=== PATIENT | female | born 1945 | race Caucasian/White ===

== ENCOUNTER 2018-01-17 10:16 | Inpatient (IN) | payer SELFPAY ==
--- NOTE | 2018-01-17 11:31 | Emergency Department Report ---
ED General Adult HPI - General Chief complaint: Hypoglycemia Stated complaint: ALTERED MENTAL STATUS Time Seen by Provider: 01/17/18 11:15 Source: family, EMS Mode of arrival: Stretcher Limitations: No Limitations, Other - History of Present Illness Initial comments: Patient is a 72-year-old female that presents emergency room with complaints of altered mental status unresponsiveness and hypoglycemia. Patient was brought in by EMS and given D50 in route and her sugar now is 2:15. Patient is a diabetic and is only taking metformin. Patient denies chest pain shortness of breath. Patient denies fever and chills patient denies any pain or other physical symptoms. Patient recently seen in urgent care for a toe infection and given Lasix and an antibiotic. MD Complaint: ams, unresponsive. -: Sudden Severity scale (0 -10): 10 Consistency: now resolved Improves with: medication Worsens with: none Associated Symptoms: confusion, malaise, weakness. denies: chest pain, cough, diaphoresis, fever/chills, headaches, loss of appetite, nausea/vomiting, rash, seizure, shortness of breath, syncope Treatments Prior to Arrival: other (amp of D50) - Related Data Home Medications Medication Instructions Recorded Confirmed Last Taken Cephalexin [Keflex] 500 mg PO Q12HR 01/17/18 01/17/18 Unknown Furosemide [Lasix] 20 mg PO DAILY 01/17/18 01/17/18 Unknown metFORMIN [Glucophage] 500 mg PO BID 01/17/18 01/17/18 Unknown Allergies Allergy/AdvReac Type Severity Reaction Status Date / Time No Known Allergies Allergy Unverified 01/17/18 10:56 ED Review of Systems ROS: Stated complaint: ALTERED MENTAL STATUS Other details as noted in HPI Constitutional: denies: chills, fever Eyes: denies: eye pain, eye discharge, vision change ENT: denies: ear pain, throat pain Respiratory: denies: cough, shortness of breath, wheezing Cardiovascular: denies: chest pain, palpitations Endocrine: no symptoms reported Gastrointestinal: denies: abdominal pain, nausea, diarrhea Genitourinary: denies: urgency, dysuria, discharge Musculoskeletal: denies: back pain, joint swelling, arthralgia Skin: denies: rash, lesions Neurological: weakness. denies: headache, paresthesias Psychiatric: denies: anxiety, depression Hematological/Lymphatic: denies: easy bleeding, easy bruising ED Past Medical Hx - Past Medical History Previous Medical History?: Yes Hx Hypertension: Yes Hx Diabetes: Yes - Surgical History Past Surgical History?: No - Family History Family history: hypertension - Social History Smoking Status: Never Smoker Substance Use Type: None - Medications Home Medications: Home Medications Medication Instructions Recorded Confirmed Last Taken Type Cephalexin [Keflex] 500 mg PO Q12HR 01/17/18 01/17/18 Unknown History Furosemide [Lasix] 20 mg PO DAILY 01/17/18 01/17/18 Unknown History metFORMIN [Glucophage] 500 mg PO BID 01/17/18 01/17/18 Unknown History ED Physical Exam - General Limitations: No Limitations General appearance: alert, in no apparent distress - Head Head exam: Present: atraumatic, normocephalic - Eye Eye exam: Present: normal appearance - ENT ENT exam: Present: mucous membranes moist - Neck Neck exam: Present: normal inspection - Respiratory Respiratory exam: Present: normal lung sounds bilaterally. Absent: respiratory distress - Cardiovascular Cardiovascular Exam: Present: regular rate, normal rhythm. Absent: systolic murmur, diastolic murmur, rubs, gallop - GI/Abdominal GI/Abdominal exam: Present: soft, normal bowel sounds - Extremities Exam Extremities exam: Present: normal inspection, full ROM - Back Exam Back exam: Present: normal inspection - Neurological Exam Neurological exam: Present: alert, oriented X3, other (foot exam normal. no signs of infection. ) - Psychiatric Psychiatric exam: Present: normal affect, normal mood - Skin Skin exam: Present: warm, dry, intact, normal color. Absent: rash ED Course Vital Signs 01/17/18 01/17/18 10:56 12:37 Temperature 97.7 F Pulse Rate 67 69 Respiratory 17 18 Rate Blood Pressure 124/57 Blood Pressure 128/58 [Left] O2 Sat by Pulse 96 100 Oximetry - Reevaluation(s) Reevaluation #1: Patient to be admitted to the hospitalist service. 01/17/18 14:42 Reevaluation #2: Patient to be admitted to Dr. Esparza in the hospital service 01/17/18 15:[address]. [address] Esparza to assume care and admit patient to the hospitalist service. ED Medical Decision Making - Lab Data Result diagrams: 01/17/18 11:12 01/17/18 14:44 - EKG Data -: EKG Interpreted by Me EKG shows normal: sinus rhythm, intervals, QRS complexes Rate: normal - Medical Decision Making Patient is a 72-year-old female presents emergency room for unresponsiveness and hypoglycemia brought in by EMS. Patient found to have a large UTI and will admit patient to the hospitalist service for further evaluation and treatment - Differential Diagnosis uti. hypoglycemia, ams, med toxity. dehydration. Critical Care Time: Yes Critical care attestation.: If time is entered above; I have spent that time in minutes in the direct care of this critically ill patient, excluding procedure time. Critical Care Time: 35 minutes spent for cc time. ED Disposition Clinical Impression: Hypoglycemia, Mental status alteration, UTI (urinary tract infection), Unresponsiveness Disposition: 09 OP ADMIT IP TO THIS HOSP Is pt being admited?: Yes Does the pt Need Aspirin: No Condition: Serious Time of Disposition: 14:33
[2018-01-17 11:33] LABS: Basophils % (Auto) 0.6 % (0.0-1.8); Eosinophils # (Auto) 0.3 K/mm3 (0.0-0.4); Eosinophils % (Auto) 3.9 % (0.0-4.3); Hematocrit 35.4 % (30.3-42.9); Hemoglobin 12.5 gm/dl (10.1-14.3); Lymphocytes # (Auto) 2.6 K/mm3 (1.2-5.4); Lymphocytes % (Auto) 32.9 % (13.4-35.0); Mean Corpuscular HGB Conc 35 % (30-34); Mean Corpuscular Hemoglobin 32 pg (28-32); Mean Corpuscular Volume 92 fl (79-97); Monocytes # (Auto) 0.4 K/mm3 (0.0-0.8); Monocytes % (Auto) 4.6 % (0.0-7.3); Platelet Count 212 K/mm3 (140-440); Red Blood Count 3.84 M/mm3 (3.65-5.03); Red Cell Distribution Width 12.5 % (13.2-15.2)
[2018-01-17 11:45] LABS: BUN/Creatinine Ratio 52; Blood Urea Nitrogen 47 mg/dL (7-17); Calcium 10.2 mg/dL (8.4-10.2); Hemolysis Index 5
--- NOTE | 2018-01-17 12:15 | Cat Scan Report ---
CT HEAD WITHOUT CONTRAST: HISTORY: Lightheadedness, dizziness. TECHNIQUE: Sequential 2.5mm CT images. COMPARISON: none. FINDINGS: Cerebral Parenchyma: Within normal limits. Cerebellum: Within normal limits. Brainstem: Within normal limits. Ventricles: Normal. Sella: Normal. Extra-axial spaces: Normal. Basal Cisterns: Normal. Intracranial Hemorrhage: None. Midline Shift: None. Calvarium: Normal. Sinuses: Normal. Mastoid Air Cells: Normal. Visualized Orbits: Normal. IMPRESSION: Cranial CT scan within normal limits.
[2018-01-17 13:16] LABS: Bacteria,Urine 2+ /HPF (Negative); Bilirubin,Urine NEG (Negative); Blood,Urine SM (Negative); Color,Urine Yellow (Yellow); Mucus,Urine FEW /HPF; Protein,Urine <15 mg/dL mg/dL (Negative); Urobilinogen,Urine < 2.0 mg/dL (<2.0)
[2018-01-17] MEDS ORDERED: NACL 0.9% 1000 ML 1,000 ML IV ONE (14:37)
--- NOTE | 2018-01-17 15:50 | Cat Scan Report ---
FINAL REPORT EXAM: CT ABDOMEN PELVIS WO CON HISTORY: abd pain TECHNIQUE: CT of the abdomen and pelvis without IV contrast. Sagittal reconstructed imaging provided. PRIORS: None currently available. FINDINGS: ABDOMEN: Mild scarring or discoid subsegmental atelectasis in both lung bases. Limited images of the heart demonstrate small pericardial effusion which may be physiologic. Mild cardiomegaly noted. Coronary artery disease identified. Distended gallbladder with layering density suggesting sludge and tiny stones. Mild wall thickening suspected. Common bile duct appears distended measuring 10 mm. Distinct ductal stone or lesion is not evident by CT. Liver, stomach, spleen, pancreas, adrenals, and kidneys are unremarkable. No hydronephrosis or nephroureteral stones. There is no abdominal aortic aneurysm. [id number] atherosclerotic disease noted. IVC is unremarkable. There is no periaortic or retroperitoneal adenopathy or mass. Appendix is normal. Terminal ileum is unremarkable. [id number] stool throughout the colon without wall thickening or inflammatory changes. Small bowel loops are mildly distended. There may be some mild wall thickening. No obstructive pattern. No air-fluid levels. Mesentery is unremarkable. Fat-containing umbilical hernia without strangulation. PELVIS: Bladder is significantly distended with lobulated margins no wall thickening or lesion identified. Findings could be related to dysuria. Limited images of the uterus are unremarkable. There is no pelvic mass or adenopathy. Inguinal regions are unremarkable. Bones: No suspicious osseous lesions on this limited examination of the skeleton. Metastatic disease better evaluated with bone scan. Degenerative changes are in the spine. IMPRESSION: Possible acute cholecystitis. Please correlate with gallbladder ultrasound. Small pericardial effusion. Possibly physiologic. Small bowel findings may represent mild enteritis, ileus, or normal variation. No obstruction. Large bladder with lobulation. Possible dysuria.
[2018-01-17] MEDS: ZOSYN/NS 3.375GM/50ML 3.375 GM/50 ML BAG IV SCH ×2 (15:51→23:57)
[2018-01-17] MEDS ORDERED: SODIUM CHLORIDE FLUSH SYRINGE 10 ML IV PRN (20:16)
[2018-01-17] MEDS ORDERED: TYLENOL PO PRN (20:16)
[2018-01-17] MEDS ORDERED: ZOFRAN IV PRN (20:16)
[2018-01-17] MEDS ORDERED: PERCOCET 5/325 PO PRN (20:18)
[2018-01-17] MEDS ORDERED: MORPHINE IV PRN (20:18)
[2018-01-17] MEDS ORDERED: D5NS 1,000 ML IV SCH (21:00)
[2018-01-17] MEDS ORDERED: PEPCID IV SCH ×2 (22:00)
--- NOTE | 2018-01-17 22:33 | Event Note ---
Date: 01/17/18 See dictated history and physical in the reports
[2018-01-17] MEDS ORDERED: NACL 0.9% 1000 ML 1,000 ML IV SCH (23:00)
--- NOTE | 2018-01-17 23:16 | History and Physical Report ---
CHIEF COMPLAINT: Altered mental status for a few hours. HISTORY OF PRESENT ILLNESS: A 72-year-old female with history of diabetes, on metformin 500 twice a day, brought in for unresponsiveness and low blood sugars. The patient was given D50 en route and the sugar in the Emergency Room was 215. Before, it was around 40. The patient denies any chest pain, palpitations or shortness of breath. Denies fever and chills. The patient was seen for a toe infection recently and was given cephalexin. PAST MEDICAL HISTORY: Significant for type 2 diabetes. PAST SURGICAL HISTORY: None. FAMILY HISTORY: Hypertension. SOCIAL HISTORY: Does not smoke. No alcohol, no recreational drugs. REVIEW OF SYSTEMS: Significant for altered sensorium and decreased responsiveness, which is improved to normal sensorium while in the Emergency Room. No fever. No chills. A 14-point review of systems done, otherwise negative. PHYSICAL EXAMINATION: GENERAL: Elderly female, cooperative during examination. Alert and oriented during my examination. VITAL SIGNS: Blood pressure is 128/58, temperature is 97.4, pulse is 69, respirations are 18, sats 100%. HEENT: Unremarkable. Pupils equal and reactive. NECK: Supple, no lymphadenopathy, no thyromegaly. LUNGS: Clear to auscultation and percussion. Good air entry. CARDIOVASCULAR: S1, S2 heard. No gallop, no murmur, no rub. Apical impulse in left fifth intercostal space and midclavicular line. ABDOMEN: Soft and benign. No hepatosplenomegaly. No guarding, no rigidity. Hernial orifices are normal. EXTREMITIES: Good pedal pulses. No pedal edema. CENTRAL NERVOUS SYSTEM: Alert and oriented x 4 during the exam. At the time of admission to the Emergency Room, the patient was lethargic. Became more responsive after D50W LABORATORY DATA: Significant for white count of 8000, H and H is 12.5 and 35.4, platelet count of 212,000. Sodium is 140, potassium 4.4, BUN and creatinine is 47 and 0.9. A1c is 8.3, glucose is 215, white blood cells in the urine is 108, epithelial cells 40. ASSESSMENT AND PLAN: 1. Acute encephalopathy secondary to hypoglycemia, corrected with IV fluids for now and D50W as necessary. Metformin stopped. 2. Diabetes, uncontrolled because of an A1c of 8.3. We will monitor blood sugars. We will reintroduce metformin later. Hypoglycemia, probably secondary to not eating and urinary tract infection. 3. Urinary tract infection. The patient was started on IV Rocephin 2 g IV piggyback q. 24 hours. 4. Acute kidney injury. The patient has prerenal dehydration. The patient to get IV fluids. 5. Deep venous thrombosis prophylaxis, heparin 5000 q.12h subcutaneous. JOB# [id number] VSM/NTS
[2018-01-18] MEDS: SODIUM CHLORIDE FLUSH SYRINGE 10 ML IV SCH ×3 (00:04→22:32)
[2018-01-18] MEDS: HumaLOG SUB-Q SCH ×5 (00:14→22:31)
[2018-01-18 05:41] LABS: Basophils # (Auto) 0.1 K/mm3 (0.0-0.1); Basophils % (Auto) 0.9 % (0.0-1.8); Eosinophils # (Auto) 0.4 K/mm3 (0.0-0.4); Eosinophils % (Auto) 4.9 % (0.0-4.3); Hematocrit 33.4 % (30.3-42.9); Hemoglobin 11.5 gm/dl (10.1-14.3); Lymphocytes # (Auto) 3.3 K/mm3 (1.2-5.4); Lymphocytes % (Auto) 44.3 % (13.4-35.0); Mean Corpuscular HGB Conc 35 % (30-34); Mean Corpuscular Hemoglobin 32 pg (28-32); Mean Corpuscular Volume 93 fl (79-97); Monocytes # (Auto) 0.4 K/mm3 (0.0-0.8); Monocytes % (Auto) 4.8 % (0.0-7.3); Platelet Count 208 K/mm3 (140-440); Red Blood Count 3.59 M/mm3 (3.65-5.03); Red Cell Distribution Width 12.8 % (13.2-15.2)
[2018-01-18 06:06] LABS: Alanine Aminotransferase 6 units/L (7-56); Albumin 3.4 g/dL (3.9-5); BUN/Creatinine Ratio 32; Blood Urea Nitrogen 29 mg/dL (7-17); Calcium 9.2 mg/dL (8.4-10.2); Hemolysis Index 36
[2018-01-18] MEDS: PEPCID PO SCH ×2 (09:12→22:31)
[2018-01-18] MEDS ORDERED: ROCEPHIN/NS 2 GM/100 ML 2 GM/100 ML BAG IV SCH (10:00)
[2018-01-18] MEDS ORDERED: cefTRIAXone 2 GM in NACL 0.9% 20 ML IV SCH (10:00)
--- NOTE | 2018-01-18 10:13 | Progress Note ---
Assessment and Plan - Patient Problems (1) Acute prerenal azotemia Current Visit: Yes Status: Acute Plan to address problem: Secondary to dehydration This is improving Continue IV hydration Monitor renal function (2) Type 2 diabetes mellitus Current Visit: Yes Status: Chronic Qualifiers: Diabetes mellitus watermelon inspector insulin use: without watermelon inspector use Diabetes mellitus complication status: with ophthalmic complications Diabetes mellitus complication detail: with diabetic retinopathy Proliferative retinopathy type : unspecified Laterality: bilateral Plan to address problem: Monitor blood sugars before meals and at bedtime Initiate insulin sliding scale coverage (3) Abnormal CT of the abdomen Current Visit: Yes Status: Acute Plan to address problem: CT scan results reviewed Questionable acute cholecystitis We will request GI consult (4) Hypoglycemia Current Visit: Yes Status: Acute Plan to address problem: Resolved (5) Mental status alteration Current Visit: Yes Status: Acute Qualifiers: Altered mental status type: somnolence Qualified Code(s): R40.0 - Somnolence Plan to address problem: Most likely secondary to hypoglycemia This is resolved CT head results reviewed (6) UTI (urinary tract infection) Current Visit: Yes Status: Acute Qualifiers: Urinary tract infection type: acute cystitis Hematuria presence: without hematuria Qualified Code(s): N30.00 - Acute cystitis without hematuria Plan to address problem: Urine cultures pending Continue Rocephin but will decrease the dose to 1 g Subjective Date of service: 01/18/18 Principal diagnosis: altered mental status , hypoglycemia Interval history: 72-year-old [id number] female from [facility], was brought into the emergency room with altered mental status secondary to hypoglycemia. At the time of my examination patient is fully alert and oriented. History obtained from patient's son who is in the room. She is legally blind. Patient offers no specific complaints at this time. She denies any chest pain or shortness of breath. Denies any abdominal pain nausea or vomitings diarrhea or constipation. She denies any fever or chills or dysuria. Her appetite is fair. Labs and CT head and CT of the abdomen results reviewed Objective - Constitutional Vitals: Vital Signs - 12hr 01/18/18 01/18/18 02:36 08:59 Temperature 98.3 F 97.3 F L Pulse Rate 67 64 Respiratory 18 20 Rate Blood Pressure 130/61 124/69 O2 Sat by Pulse 99 97 Oximetry General appearance: Present: no acute distress - EENT Eyes: PERRL, EOM intact ENT: hearing intact, clear oral mucosa - Neck Neck: supple, normal ROM, no masses or JVD - Respiratory Respiratory effort: normal Respiratory: bilateral: CTA - Cardiovascular Rhythm: regular Heart Sounds: Present: S1 & S2 Extremities: No edema - Gastrointestinal General gastrointestinal: Present: soft, non-tender. Absent: hepatomegaly, splenomegaly Rectal Exam: deferred - Genitourinary Female genitourinary: deferred - Integumentary Integumentary: clear - Musculoskeletal Musculoskeletal: strength equal bilaterally - Neurologic Neurologic: no focal deficits, moves all extremities - Psychiatric Psychiatric: appropriate mood/affect - Labs CBC & Chem 7: 01/18/18 05:11 01/18/18 05:11 Labs: Abnormal lab results 01/17/18 01/17/18 01/17/18 Range/Units 10:51 11:12 11:12 RBC (3.65-5.03) M/mm3 MCHC 35 H (30-34) % RDW 12.5 L (13.2-15.2) % Lymph % (Auto) (13.4-35.0) % Eos % (Auto) (0.0-4.3) % BUN 47 H (7-17) mg/dL Glucose 182 H (65-100) mg/dL POC Glucose 215 H (70-105) Hemoglobin A1c (4-6) % ALT (7-56) units/L Total Protein (6.3-8.2) g/dL Albumin (3.9-5) g/dL Urine WBC (Auto) (0.0-6.0) /HPF U Epithel Cells (Auto) (0-13.0) /HPF 01/17/18 01/17/18 01/17/18 Range/Units 11:12 13:36 14:44 RBC (3.65-5.03) M/mm3 MCHC (30-34) % RDW (13.2-15.2) % Lymph % (Auto) (13.4-35.0) % Eos % (Auto) (0.0-4.3) % BUN (7-17) mg/dL Glucose 164 H (65-100) mg/dL POC Glucose 131 H (70-105) Hemoglobin A1c 8.3 H (4-6) % ALT (7-56) units/L Total Protein (6.3-8.2) g/dL Albumin (3.9-5) g/dL Urine WBC (Auto) (0.0-6.0) /HPF U Epithel Cells (Auto) (0-13.0) /HPF 01/17/18 01/17/18 01/17/18 Range/Units 16:32 21:44 Unknown RBC (3.65-5.03) M/mm3 MCHC (30-34) % RDW (13.2-15.2) % Lymph % (Auto) (13.4-35.0) % Eos % (Auto) (0.0-4.3) % BUN (7-17) mg/dL Glucose (65-100) mg/dL POC Glucose 150 H 182 H (70-105) Hemoglobin A1c (4-6) % ALT (7-56) units/L Total Protein (6.3-8.2) g/dL Albumin (3.9-5) g/dL Urine WBC (Auto) 108.0 H (0.0-6.0) /HPF U Epithel Cells (Auto) 40.0 H (0-13.0) /HPF 01/18/18 01/18/18 01/18/18 Range/Units 05:11 05:11 07:19 RBC 3.59 L (3.65-5.03) M/mm3 MCHC 35 H (30-34) % RDW 12.8 L (13.2-15.2) % Lymph % (Auto) 44.3 H (13.4-35.0) % Eos % (Auto) 4.9 H (0.0-4.3) % BUN 29 H (7-17) mg/dL Glucose 176 H (65-100) mg/dL POC Glucose 206 H (70-105) Hemoglobin A1c (4-6) % ALT 6 L (7-56) units/L Total Protein 5.6 L (6.3-8.2) g/dL Albumin 3.4 L (3.9-5) g/dL Urine WBC (Auto) (0.0-6.0) /HPF U Epithel Cells (Auto) (0-13.0) /HPF
[2018-01-18] MEDS ORDERED: cefTRIAXone 1 GM in NACL 0.9% 20 ML IV SCH (11:00)
--- NOTE | 2018-01-18 15:11 | Gastroenterology Consultation ---
<HUMAIRA POWERS - Last Filed: 01/18/18 15:11> History of Present Illness - Reason for Consult Consult date: 01/18/18 suspected cholecystitis Requesting physician: DREW BENSON - History of Present Illness Ms. Gill is a 72 y/o female visiting from [place] admitted with AMS 2/ 2 hypoglycemia, sepsis and UTI. CT on admission revealed questionable cholecystitis with distended gallbladder and wall thickening/sludge. CBD was dilated at 10mm. The patient has no GI complaints, no RUQ pain or N/V. She is tolerating her diet well. Family at bedside translates. WBC WNL. The patient is currently feeling well. Past History Past Medical History: diabetes, hypertension Past Surgical History: No surgical history Social history: lives with family Family history: hypertension Medications and Allergies Allergies Allergy/AdvReac Type Severity Reaction Status Date / Time No Known Allergies Allergy Unverified 01/17/18 10:56 Home Medications Medication Instructions Recorded Confirmed Last Taken Type Cephalexin [Keflex] 500 mg PO Q12HR 01/17/18 01/17/18 Unknown History Furosemide [Lasix] 20 mg PO DAILY 01/17/18 01/17/18 Unknown History metFORMIN [Glucophage] 500 mg PO BID 01/17/18 01/17/18 Unknown History Active Meds: Active Medications Acetaminophen (Tylenol) 650 mg PO Q4H PRN PRN Reason: Pain MILD(1-3)/Fever >100.5/PATHAK Famotidine (Pepcid) 20 mg PO BID [facility] Last Admin: 01/18/18 09:12 Dose: 20 mg Sodium Chloride (Nacl 0.9% 1000 Ml) 1,000 mls @ 75 mls/hr IV DIRECT [facility] Ceftriaxone Sodium 1 gm/ (Sodium Chloride) 20 mls @ 2 mls/min IV Q24HR [facility] Influenza Virus Vaccine Quadrival (Fluarix Quad [id number](36 Mos+) 0.5 ml IM .ONCE ONE Stop: 01/19/18 12:01 Insulin Human Lispro (Humalog) 0 unit SUB-Q ACHS [facility]; Protocol Last Admin: 01/18/18 11:45 Dose: 1 unit Morphine Sulfate (Morphine) 2 mg IV Q4H PRN PRN Reason: Pain, Moderate (4-6) Ondansetron HCl (Zofran) 4 mg IV Q8H PRN PRN Reason: Nausea And Vomiting Oxycodone/Acetaminophen (Percocet 5/325) 1 tab PO Q6H PRN PRN Reason: Pain, Moderate (4-6) Pneumococcal Polyvalent Vaccine (Pneumovax 23) 0.5 ml IM .ONCE ONE Stop: 01/19/18 12:01 Sodium Chloride (Sodium Chloride Flush Syringe 10 Ml) 10 ml IV BID [facility] Last Admin: 01/18/18 09:12 Dose: 10 ml Sodium Chloride (Sodium Chloride Flush Syringe 10 Ml) 10 ml IV PRN PRN PRN Reason: LINE FLUSH Review of Systems - Review of Systems All systems: negative Constitutional: weakness Exam - Constitutional Vital Signs: Temp Pulse Resp BP Pulse Ox 98.5 F 64 20 136/66 97 01/18/18 14:08 01/18/18 08:59 01/18/18 14:08 01/18/18 14:08 01/18/18 08:59 General appearance: no acute distress - EENT Eyes: EOM intact ENT: hearing intact - Neck Neck: supple - Respiratory Respiratory: bilateral: CTA - Cardiovascular Rhythm: regular Heart Sounds: Present: S1 & S2 - Gastrointestinal General gastrointestinal: Present: soft, non-tender, non-distended - Integumentary Integumentary: Present: warm, dry - Neurologic Neurological: alert and oriented x3 - Psychiatric Psychiatric: appropriate mood/affect - Labs CBC & Chem 7: 01/18/18 05:11 01/18/18 05:11 Lab Results: Laboratory Results - last 24 hr 01/17/18 01/17/18 01/17/18 11:12 14:44 16:32 WBC RBC Hgb Hct MCV MCH MCHC RDW Plt Count Lymph % (Auto) Josephine % (Auto) Eos % (Auto) Baso % (Auto) Lymph # Josephine # Eos # Baso # Seg Neutrophils % Seg Neutrophils # Sodium Potassium Chloride Carbon Dioxide Anion Gap BUN Creatinine Estimated GFR BUN/Creatinine Ratio Glucose 164 H POC Glucose 150 H Hemoglobin A1c 8.3 H Calcium Total Bilirubin AST ALT Alkaline Phosphatase Total Protein Albumin Albumin/Globulin Ratio 01/17/18 01/18/18 01/18/18 21:44 05:11 05:11 WBC 7.5 RBC 3.59 L Hgb 11.5 Hct 33.4 MCV 93 MCH 32 MCHC 35 H RDW 12.8 L Plt Count 208 Lymph % (Auto) 44.3 H Josephine % (Auto) 4.8 Eos % (Auto) 4.9 H Baso % (Auto) 0.9 Lymph # 3.3 Josephine # 0.4 Eos # 0.4 Baso # 0.1 Seg Neutrophils % 45.1 Seg Neutrophils # 3.4 Sodium 141 Potassium 4.2 Chloride 104.3 Carbon Dioxide 24 Anion Gap 17 BUN 29 H Creatinine 0.9 Estimated GFR > 60 BUN/Creatinine Ratio 32 Glucose 176 H POC Glucose 182 H Hemoglobin A1c Calcium 9.2 Total Bilirubin 0.20 AST 13 ALT 6 L Alkaline Phosphatase 35 Total Protein 5.6 L Albumin 3.4 L Albumin/Globulin Ratio 1.5 01/18/18 01/18/18 07:19 11:13 WBC RBC Hgb Hct MCV MCH MCHC RDW Plt Count Lymph % (Auto) Josephine % (Auto) Eos % (Auto) Baso % (Auto) Lymph # Josephine # Eos # Baso # Seg Neutrophils % Seg Neutrophils # Sodium Potassium Chloride Carbon Dioxide Anion Gap BUN Creatinine Estimated GFR BUN/Creatinine Ratio Glucose POC Glucose 206 H 156 H Hemoglobin A1c Calcium Total Bilirubin AST ALT Alkaline Phosphatase Total Protein Albumin Albumin/Globulin Ratio Assessment and Plan 1. abnormal CT scan -questionable cholecystitis per CT report. -pt is asymptomatic -Would recommend surgical consult if family/pt agreeable -No evidence of obstruction. -GI will sign off. <LORI BARNARD - Last Filed: 01/18/18 20:22> Medications and Allergies Active Meds: Active Medications Acetaminophen (Tylenol) 650 mg PO Q4H PRN PRN Reason: Pain MILD(1-3)/Fever >100.5/PATHAK Famotidine (Pepcid) 20 mg PO BID [facility] Last Admin: 01/18/18 09:12 Dose: 20 mg Sodium Chloride (Nacl 0.9% 1000 Ml) 1,000 mls @ 75 mls/hr IV DIRECT [facility] Ceftriaxone Sodium 1 gm/ (Sodium Chloride) 20 mls @ 2 mls/min IV Q24HR [facility] Influenza Virus Vaccine Quadrival (Fluarix Quad [id number](36 Mos+) 0.5 ml IM .ONCE ONE Stop: 01/19/18 12:01 Insulin Human Lispro (Humalog) 0 unit SUB-Q ACHS [facility]; Protocol Last Admin: 01/18/18 16:44 Dose: 5 unit Morphine Sulfate (Morphine) 2 mg IV Q4H PRN PRN Reason: Pain, Moderate (4-6) Ondansetron HCl (Zofran) 4 mg IV Q8H PRN PRN Reason: Nausea And Vomiting Oxycodone/Acetaminophen (Percocet 5/325) 1 tab PO Q6H PRN PRN Reason: Pain, Moderate (4-6) Pneumococcal Polyvalent Vaccine (Pneumovax 23) 0.5 ml IM .ONCE ONE Stop: 01/19/18 12:01 Sodium Chloride (Sodium Chloride Flush Syringe 10 Ml) 10 ml IV BID [facility] Last Admin: 01/18/18 09:12 Dose: 10 ml Sodium Chloride (Sodium Chloride Flush Syringe 10 Ml) 10 ml IV PRN PRN PRN Reason: LINE FLUSH Exam - Constitutional Vital Signs: Temp Pulse Resp BP Pulse Ox 98.5 F 64 16 136/66 97 01/18/18 14:08 01/18/18 18:00 01/18/18 18:00 01/18/18 14:08 01/18/18 18:00 - Labs CBC & Chem 7: 01/18/18 05:11 01/18/18 05:11 Lab Results: Laboratory Results - last 24 hr 01/17/18 01/17/18 01/18/18 11:12 21:44 05:11 WBC 7.5 RBC 3.59 L Hgb 11.5 Hct 33.4 MCV 93 MCH 32 MCHC 35 H RDW 12.8 L Plt Count 208 Lymph % (Auto) 44.3 H Josephine % (Auto) 4.8 Eos % (Auto) 4.9 H Baso % (Auto) 0.9 Lymph # 3.3 Josephine # 0.4 Eos # 0.4 Baso # 0.1 Seg Neutrophils % 45.1 Seg Neutrophils # 3.4 Sodium Potassium Chloride Carbon Dioxide Anion Gap BUN Creatinine Estimated GFR BUN/Creatinine Ratio Glucose POC Glucose 182 H Hemoglobin A1c 8.3 H Calcium Total Bilirubin AST ALT Alkaline Phosphatase Total Protein Albumin Albumin/Globulin Ratio 01/18/18 01/18/18 01/18/18 05:11 07:19 11:13 WBC RBC Hgb Hct MCV MCH MCHC RDW Plt Count Lymph % (Auto) Josephine % (Auto) Eos % (Auto) Baso % (Auto) Lymph # Josephine # Eos # Baso # Seg Neutrophils % Seg Neutrophils # Sodium 141 Potassium 4.2 Chloride 104.3 Carbon Dioxide 24 Anion Gap 17 BUN 29 H Creatinine 0.9 Estimated GFR > 60 BUN/Creatinine Ratio 32 Glucose 176 H POC Glucose 206 H 156 H Hemoglobin A1c Calcium 9.2 Total Bilirubin 0.20 AST 13 ALT 6 L Alkaline Phosphatase 35 Total Protein 5.6 L Albumin 3.4 L Albumin/Globulin Ratio 1.5 01/18/18 16:37 WBC RBC Hgb Hct MCV MCH MCHC RDW Plt Count Lymph % (Auto) Josephine % (Auto) Eos % (Auto) Baso % (Auto) Lymph # Josephine # Eos # Baso # Seg Neutrophils % Seg Neutrophils # Sodium Potassium Chloride Carbon Dioxide Anion Gap BUN Creatinine Estimated GFR BUN/Creatinine Ratio Glucose POC Glucose 374 H Hemoglobin A1c Calcium Total Bilirubin AST ALT Alkaline Phosphatase Total Protein Albumin Albumin/Globulin Ratio Assessment and Plan The patient was seen and examined. She does not appear to have symptoms suggestive of cholecystitis. I am in favor of conservative care. Will s/o. Please re consult PRN. Thank you for asking us to see her in consultation. Lori Barnard MD
[2018-01-19 05:35] LABS: BUN/Creatinine Ratio 21; Blood Urea Nitrogen 15 mg/dL (7-17); Calcium 9.7 mg/dL (8.4-10.2); Hemolysis Index 11
[2018-01-19] MEDS: HumaLOG SUB-Q SCH ×2 (08:23→12:15)
--- NOTE | 2018-01-19 09:50 | Discharge Summary ---
Providers - Providers Date of Admission: 01/17/18 15:33 Date of discharge: 01/19/18 Attending physician: DREW BENSON 01/18/18 07:27 Physical Therapy Evaluation and Treat [CONS] Routine Comment: Reason For Exam: Decreased strength Weight bearing status?: Full wt bearing Assistive devices?: No 01/18/18 10:06 Consult to Physician [CONS] Routine Comment: called office spoke to viky/teena Consulting Provider: LORI BARNARD Physician Instructions: Reason For Exam: abnormal CT abdomen with ? acute cholecystitis Primary care physician: [employer] Hospitalization Condition: Serious Pertinent studies: CT of the abdomen Hospital course: Hospital course: Patient was admitted with diagnosis of altered mental status, UTI and dehydration Her mental status cleared with IV hydration and antibiotics She is at this time medically stable for discharge Discussed with son about any needs and apparently at this time he does not anticipate anything. She will go home with her son. She has been ambulating. Patient Problems (1) Acute prerenal azotemia Secondary to dehydration resolved (2) Type 2 diabetes mellitus Current Visit: Yes Status: Chronic Qualifiers: Diabetes mellitus intermodal dispatcher insulin use: without longterm use Diabetes mellitus complication status: with ophthalmic complications Diabetes mellitus complication detail: with diabetic retinopathy Proliferative retinopathy type : unspecified Laterality: bilateral Plan to address problem: Continue metformin upon discharge Patient does not need any refill at this time (3) Abnormal CT of the abdomen CT scan results reviewed Questionable acute cholecystitis Patient is asymptomatic Abdomen is benign GI consult note reviewed They have signed off with no further recommendations (4) Hypoglycemia Current Visit: Yes Status: Acute Plan to address problem: Resolved (5) Mental status alteration Current Visit: Yes Status: Acute Qualifiers: Altered mental status type: somnolence Qualified Code(s): R40.0 - Somnolence Plan to address problem: Most likely secondary to hypoglycemia This is resolved CT head results reviewed (6) UTI (urinary tract infection) Current Visit: Yes Status: Acute Qualifiers: Urinary tract infection type: acute cystitis Hematuria presence: without hematuria Qualified Code(s): N30.00 - Acute cystitis without hematuria Plan to address problem: Urine cultures were not obtained We discharged the patient on oral antibiotic for 5 more days Disposition: - TO HOME OR SELFCARE Time spent for discharge: 38 min - Discharge Diagnoses (1) Acute prerenal azotemia Status: Acute (2) Type 2 diabetes mellitus Status: Chronic Qualifiers: Diabetes mellitus intermodal dispatcher insulin use: without longterm use Diabetes mellitus complication status: with ophthalmic complications Diabetes mellitus complication detail: with diabetic retinopathy Proliferative retinopathy type : unspecified Laterality: bilateral (3) Abnormal CT of the abdomen Status: Acute (4) Hypoglycemia Status: Acute (5) Mental status alteration Status: Acute Qualifiers: Altered mental status type: somnolence Qualified Code(s): R40.0 - Somnolence (6) UTI (urinary tract infection) Status: Acute Qualifiers: Urinary tract infection type: acute cystitis Hematuria presence: without hematuria Qualified Code(s): N30.00 - Acute cystitis without hematuria Core Measure Documentation - Palliative Care Palliative Care/ Comfort Measures: Not Applicable - Core Measures Any of the following diagnoses?: none Exam - Constitutional Vitals: Temp Pulse Resp BP Pulse Ox 98.7 F 61 20 143/62 97 01/19/18 07:34 01/19/18 01:48 01/19/18 07:34 01/19/18 07:34 01/19/18 01:48 General appearance: Present: no acute distress, well-nourished - EENT Eyes: Present: PERRL, EOM intact ENT: hearing intact, clear oral mucosa, no thrush - Neck Neck: Present: supple, normal ROM. Absent: masses or JVD - Respiratory Respiratory effort: normal Respiratory: bilateral: CTA - Cardiovascular Rhythm: regular Heart Sounds: Present: S1 & S2 - Extremities Extremities: No edema - Abdominal General gastrointestinal: Present: soft, non-tender. Absent: hepatomegaly, splenomegaly - Rectal Rectal Exam: deferred - Integumentary Integumentary: Present: clear - Musculoskeletal Musculoskeletal: strength equal bilaterally - Neurologic Neurologic: no focal deficits, moves all extremities Plan Activity: advance as tolerated, fall precautions Weight Bearing Status: Weight Bear as Tolerated Diet: regular, low fat, low cholesterol, low salt, diabetic Follow up with: PRIMARY CARE, [Primary Care Provider] - 7 Days Prescriptions: Ciprofloxacin HCl [Cipro] 500 mg PO BID #10 tablet
[2018-01-19] MEDS: SODIUM CHLORIDE FLUSH SYRINGE 10 ML IV SCH (09:56)
[2018-01-19] MEDS: PEPCID PO SCH (09:56)
[2018-01-19] MEDS ORDERED: cefTRIAXone 1 GM in NACL 0.9% 20 ML IV SCH (10:00)
[2018-01-19] MEDS ORDERED: Fluarix Quad 2017-2018(36 MOS+ IM ONE (12:00)
[2018-01-19] MEDS ORDERED: PNEUMOVAX 23 IM ONE (12:00)
[2018-01-19 13:23] VITALS: BP 155/74
== END 2018-01-19 13:58 | disposition home or self-care (01) | DRG 871 ==
LOC: ED 10:16 → 2B-ACE 15:33
PROVIDERS: ADMIT Internal Medicine; ATTEND Internal Medicine
PROC: 3E0234Z Introduction of Serum, Toxoid and Vaccine into Muscle, Percutaneous Approach (ICD-10-PCS; principal; 2018-01-19)
DX: A41.9 Sepsis, unspecified organism (principal); G93.41 Metabolic encephalopathy; K81.0 Acute cholecystitis; N30.00 Acute cystitis without hematuria; N17.9 Acute kidney failure, unspecified; E86.0 Dehydration; E11.649 Type 2 diabetes mellitus with hypoglycemia without coma; I10 Essential (primary) hypertension; E11.319 Type 2 diabetes mellitus with unspecified diabetic retinopathy without macular edema; Z23 Encounter for immunization; Z79.84 Long term (current) use of oral hypoglycemic drugs
CPT/HCPCS: 36415; 70450; 74176; 80048; 80053; 81001; 82947; 82962; 83036; 85025; 90686; 90732; 93005; 93010; 96365; 99291; J0696; J1815; J2543; J7030; J7042